=== PATIENT | male | born 1975 | race Caucasian/White ===

== ENCOUNTER 2022-10-14 15:12 | Emergency (ER) | payer OTHER ==
[2022-10-14 15:42] VITALS: BP 0/0; PULSE 69; RESP 18; TEMP 97.3; BMI 29.8
[2022-10-14] MEDS ORDERED: CEPHALEXIN MONOHYDRATE 500 MG CAPSULE (UD) PO ONE (15:44)
[2022-10-14] MEDS ORDERED: HALOPERIDOL LACTATE 5 MG/ML IM ONE ×2 (15:44→15:50)
[2022-10-14] MEDS ORDERED: CEPHALEXIN MONOHYDRATE 500 MG CAPSULE (UD) ONE (15:52)
== END 2022-10-14 16:40 | disposition home or self-care (01) ==
LOC: FER 15:12
PROC: 3E023GC Introduction of Other Therapeutic Substance into Muscle, Percutaneous Approach (ICD-10-PCS; principal; 2022-10-14)
DX: L03.116 Cellulitis of left lower limb (principal)
CPT/HCPCS: 99284-25

== ENCOUNTER 2022-10-23 20:20 | Emergency (ER) | payer OTHER ==
[2022-10-23 20:49] VITALS: BP 125/86; PULSE 90; RESP 16; BMI 29.6
[2022-10-23] MEDS ORDERED: CLINDAMYCIN HCL 150 MG CAPSULE (FP) PO ONE (20:55)
[2022-10-23] MEDS ORDERED: CLINDAMYCIN HCL 150 MG CAPSULE (FP) ONE (20:59)
== END 2022-10-23 21:14 | disposition home or self-care (01) ==
LOC: FER 20:20
DX: L03.116 Cellulitis of left lower limb (principal)
CPT/HCPCS: 99283-25

== ENCOUNTER 2022-12-17 12:33 | Emergency (ER) | payer OTHER ==
[2022-12-17 13:01] VITALS: BP 105/75; PULSE 90; RESP 16; TEMP 98.4; BMI 29.6
== END 2022-12-17 13:15 | disposition home or self-care (01) ==
LOC: FER 12:33
DX: L03.213 Periorbital cellulitis (principal); H10.9 Unspecified conjunctivitis; H02.843 Edema of right eye, unspecified eyelid
CPT/HCPCS: 99283-25